=== PATIENT | male | born 1955 | race African-American/Black ===

== ENCOUNTER 2022-05-22 06:10 | Emergency (ER) | payer OTHER ==
[2022-05-22 06:55] LABS: Hemoglobin 13.1 g/dL (14.0-18.0); Mean Corpuscular Volume 90.8 fl (78.0-98.0); Red Blood Cell (RBC) Count 4.33 mill/uL (4.70-6.10); White Blood Cell (WBC) Count 11.2 10x3/uL (4.8-10.8)
[2022-05-22 06:56] LABS: #Basophils 0.1 thou/uL (0.0-0.2); #Eosinphils 0.4 thou/uL (0.0-0.7); #Lymphocytes 3.1 thou/uL (1.20-3.40); #Neutrophils 6.7 thou/uL (1.40-6.50); %Basophils 0.5 % (0.0-1.0); %Eosinophils 3.6 % (0.0-10.0); %Lymphocytes 27.4 % (21.0-51.0); %Monocytes 8.6 % (0.0-10.0); %Neutrophils 59.9 % (42.0-75.0); Manual Diff?? NO; Mean Corpuscular HGB CONC 33.2 g/dL (32.0-36.0); Mean Corpuscular Hemoglobin 30.2 pg (27.0-31.0); Mean Platelet Volume 7.5 fL (7.4-10.4); Platelet Count 343 10x3/uL (130-400); RBC Distribution Width 11.9 % (11.5-14.5)
[2022-05-22 07:08] LABS: Carbon Dioxide 25 mmol/L (23-31)
[2022-05-22 07:12] LABS: ALT (SGPT) 14 U/L (8-55); AST (SGOT) 12 U/L (5-34); Albumin 3.6 g/dL (3.4-4.8); Alkaline Phosphatase 62 U/L (40-110); Anion Gap 13 mmol/L (10-20); BUN (Urea Nitrogen) 11 mg/dL (8.4-25.7); Bilirubin, Total 1.1 mg/dL (0.2-1.2); Calc. Creatinine Clearance 0 mL/min (70-130); Calcium 9.5 mg/dL (7.8-10.44); Chloride 103 mmol/L (98-107); Estimated GFR 82; Globulin 4.4 g/dL (2.4-3.5); Glucose 104 mg/dL (80-115); Potassium 3.5 mmol/L (3.5-5.1); Sodium 137 mmol/L (136-145)
[2022-05-22] MEDS ORDERED: Ipratropium/Albuterol 3 ML NEB ONE (07:16)
[2022-05-22] MEDS ORDERED: Nitroglycerin 0.4 MG TAB (25 Tab Bottle) ONE (07:16)
[2022-05-22] MEDS ORDERED: Ketorolac Tromethamine 30 MG/ML VIAL ONE (07:16)
[2022-05-22 07:43] LABS: SARS-CoV-2 NAA Rapid Test DETECTED (NotDetected)
[2022-05-22] MEDS ORDERED: Ventolin HFA Inhaler 60 PUFF INHALER ONE (11:22)
[2022-05-22] MEDS ORDERED: Amlodipine 5 MG TAB ONE (11:23)
[2022-05-22] MEDS ORDERED: Budesonide 0.5 MG/2 ML NEB ONE (11:35)
== END 2022-05-22 13:09 | disposition home or self-care (01) ==
LOC: NAV ERS 06:10
DX: U07.1 COVID-19 (principal); J12.82 Pneumonia due to coronavirus disease 2019; I10 Essential (primary) hypertension; Z79.899 Other long term (current) drug therapy
CPT/HCPCS: 36415; 71045; 71275; 80053; 83605; 83880; 84484; 85025; 85379; 93005; 96374; J1885; J7620; J7626

== ENCOUNTER 2023-09-20 08:24 | Emergency (ER) | payer OTHER ==
[2023-09-20 08:55] LABS: #Basophils 0.1 thou/uL (0.0-0.2); #Eosinphils 0.7 thou/uL (0.0-0.7); #Lymphocytes 3.8 thou/uL (1.20-3.40); #Monocytes 0.7 thou/uL (0.11-0.59); #Neutrophils 6.3 thou/uL (1.40-6.50); %Basophils 0.8 % (0.0-1.0); %Eosinophils 5.8 % (0.0-10.0); %Lymphocytes 32.6 % (21.0-51.0); %Monocytes 5.8 % (0.0-10.0); Hematocrit 48.2 % (42.0-52.0); Hemoglobin 14.9 g/dL (14.0-18.0); Mean Corpuscular HGB CONC 30.8 g/dL (32.0-36.0); Mean Corpuscular Hemoglobin 27.7 pg (27.0-31.0); Mean Corpuscular Volume 89.6 fl (78.0-98.0); Mean Platelet Volume 7.6 fL (7.4-10.4); Platelet Count 260 10x3/uL (130-400); Red Blood Cell (RBC) Count 5.37 mill/uL (4.70-6.10); White Blood Cell (WBC) Count 11.5 10x3/uL (4.8-10.8)
[2023-09-20] MEDS ORDERED: Ondansetron PF 4 MG/2 ML Vial ONE (08:55)
[2023-09-20] MEDS ORDERED: Morphine 4 MG/ML VIAL ONE (08:55)
[2023-09-20 09:17] LABS: Troponin I 0.021 ng/mL (< 0.028)
[2023-09-20] MEDS ORDERED: Aspirin 325 mg Enteric Coated Tablet ONE (09:21)
[2023-09-20] MEDS ORDERED: Aspirin Chewable 81 MG TAB ONE (09:22)
[2023-09-20 09:30] LABS: ALT (SGPT) 16 U/L (8-55); AST (SGOT) 23 U/L (5-34); Albumin 4.4 g/dL (3.4-4.8); Alkaline Phosphatase 82 U/L (40-110); Anion Gap 18 mmol/L (10-20); BUN (Urea Nitrogen) 14 mg/dL (8.4-25.7); Bilirubin, Total 1.2 mg/dL (0.2-1.2); Calc. Creatinine Clearance 0 mL/min (70-130); Calcium 9.7 mg/dL (7.8-10.44); Carbon Dioxide 22 mmol/L (23-31); Chloride 103 mmol/L (98-107); Estimated GFR 63; Globulin 4.1 g/dL (2.4-3.5); Glucose 113 mg/dL (80-115); Lipase 208 U/L (8-78); Potassium 4.8 mmol/L (3.5-5.1); Protein, Total 8.5 g/dL (5.8-8.1); Sodium 138 mmol/L (136-145)
[2023-09-20] MEDS ORDERED: Nitroglycerin 0.4 MG TAB 1 EACH ONE (09:36)
[2023-09-20] MEDS ORDERED: Labetalol HCl 100 MG/20 ML VIAL ONE (10:15)
== END 2023-09-20 12:16 | disposition short-term general hospital (02) ==
LOC: NAV ERS 08:24
DX: I20.0 Unstable angina (principal); I16.1 Hypertensive emergency; I11.0 Hypertensive heart disease with heart failure; I50.9 Heart failure, unspecified; Z87.891 Personal history of nicotine dependence
CPT/HCPCS: 71046; 71275; 80053; 83690; 83735; 83880; 84484; 85025; 85379; 93005; 96374; 96375; J2270; J2405